=== PATIENT | male | born 1975 | race Caucasian/White ===

== ENCOUNTER 2018-07-06 05:09 | Emergency (ER) | payer MEDICAID | END 2018-07-06 06:37 | disposition home or self-care (01) | LOC: FTE 05:09 | DX: H60.93 Unspecified otitis externa, bilateral (principal); F17.210 Nicotine dependence, cigarettes, uncomplicated; H66.93 Otitis media, unspecified, bilateral | CPT/HCPCS: 99283; Z7502 ==